=== PATIENT | female | born 1975 | race Caucasian/White ===

== ENCOUNTER 2024-07-18 14:15 | Emergency (ER) | payer OTHER ==
[~2024-07-18] VITALS: Ht 162.6 cm; Wt 90.3 kg
[2024-07-18 14:29] VITALS: BP 144/80; PULSE 72; RESP 18; TEMP 36.9474; O2SAT 98
[2024-07-18] MEDS ORDERED: TORADOL ONE (15:13)
[2024-07-18] MEDS: TORADOL IM STA (15:17)
[2024-07-18 16:21] VITALS: BP 121/60; PULSE 67; RESP 18; TEMP 98.5; O2SAT 98
== END 2024-07-18 16:22 | disposition home or self-care (01) ==
LOC: ER 14:15
DX: S39.92XA Unspecified injury of lower back, initial encounter (principal); Z88.5 Allergy status to narcotic agent; W01.0XXA Fall on same level from slipping, tripping and stumbling without subsequent striking against object, initial encounter; Y93.89 Activity, other specified; Y92.89 Other specified places as the place of occurrence of the external cause; Y99.0 Civilian activity done for income or pay
CPT/HCPCS: 99284; 96372; 72100; 72220; J1885

== ENCOUNTER 2024-07-23 13:08 | Emergency (ER) | payer OTHER ==
[~2024-07-23] VITALS: Ht 162.6 cm; Wt 90.3 kg
[2024-07-23 13:08] VITALS: BP 117/70; PULSE 92; RESP 18; TEMP 99.1; O2SAT 99
[2024-07-23 13:49] VITALS: BP 112/76; PULSE 88; RESP 18; TEMP 99.1; O2SAT 99
== END 2024-07-23 13:53 | disposition home or self-care (01) ==
LOC: ER 13:08
DX: S39.92XA Unspecified injury of lower back, initial encounter (principal); Z88.5 Allergy status to narcotic agent; X58.XXXA Exposure to other specified factors, initial encounter; Y93.89 Activity, other specified; Y92.89 Other specified places as the place of occurrence of the external cause; Y99.0 Civilian activity done for income or pay
CPT/HCPCS: 96372; 99283